=== PATIENT | female | born 1980 | race Caucasian/White ===

== ENCOUNTER 2016-10-25 19:07 | Emergency (ER) | payer MEDICARE, OTHER ==
[2016-10-25 19:52] VITALS: RESP 18
--- NOTE | 2016-10-25 20:55 | XR ---
EXAMINATION TYPE: XR knee complete bilateral DATE OF EXAM: 10/25/2016 8:45 PM COMPARISON: NONE HISTORY: Left knee pain and swelling TECHNIQUE: 6 views FINDINGS: I see no fracture nor dislocation. Joint spaces are fairly normal. There is normal alignmen t. There is a left sided knee joint effusion. There is a small right-sided knee joint effusion. There are no pathologic calcifications. IMPRESSION: Bilateral knee joint effusions. No fracture. No significant joint space narrowing.
--- NOTE | 2016-10-25 21:36 | ED ---
Extremity Problem HPI - General Chief complaint: Extremity Problem,Nontraumatic Stated complaint: swelling in both legs Time Seen by Provider: 10/25/16 19:56 Source: patient, RN notes reviewed Mode of arrival: ambulatory Limitations: no limitations - History of Present Illness Initial comments: Patient is a 36 year old female with PMH of RA presenting with bilateral knee swelling and pain for the past week. Patient reports that she fell and broke C1 and C4 approximatley 4 months ago, and was advised to discontinue RA treatments incluiding NSAIDS and steroids which could delay healing. She states that she is following up with [facility] in regards to being cleared to remove her cervical collar. She denies any residual complications from her falls and fracture incluiding paresthesias or paralysis. She states that She has noticed the muscles around the knee to be inflammed and painfull to touch as well. She is able to ambulate. She reports that when her RA exacerbates these symptoms can happen to her. Patient states that she has taken no antiiflammatories because she has not been medically cleared to take them due to her neck fracture. Patient denies fever, chills, chest pain, shortness of breath, nausea , vomiting, peripheral paresthesias,abominal pain, dysuria, changes in bowel habits. - Related Data Home Medications Medication Instructions Recorded Confirmed Levofloxacin [Levaquin] 500 mg PO DAILY 10/25/16 10/25/16 Muscle Relaxer (Unknown) 1 tab PO DAILY PRN 10/25/16 10/25/16 Sertraline [Zoloft] 50 mg PO DAILY 10/25/16 10/25/16 oxyCODONE-APAP 5-325MG [Percocet 1 tab PO Q6HR PRN 10/25/16 10/25/16 5-325 mg] Previous Rx's Medication Instructions Recorded predniSONE 20 mg PO DAILY #5 tab 10/25/16 Allergies Allergy/AdvReac Type Severity Reaction Status Date / Time clindamycin HCl Allergy Nausea & Verified 10/25/16 20:21 [From Cleocin] Vomiting clindamycin palmitate HCl Allergy Nausea & Verified 10/25/16 20:21 [From Cleocin] Vomiting clindamycin phosphate Allergy Nausea & Verified 10/25/16 20:21 [From Cleocin] Vomiting Review of Systems ROS Statement: Those systems with pertinent positive or pertinent negative responses have been documented in the HPI. ROS Other: All systems not noted in ROS Statement are negative. Past Medical History Past Medical History: Mitral Valve Prolapse (MVP), Pneumonia, Rheumatoid Arthritis (RA) Additional Past Medical History / Comment(s): MITRAL VALVE PROLAPSE, difficult airway to intubate-pt stated she has to be awake, CONSTIPATION History of Any Multi-Drug Resistant Organisms: None Reported Past Surgical History: Hernia Repair Additional Past Surgical History / Comment(s): jaw surgeries (pt stated they had to break her jaw and lengthen bone and put in a chin implant) d/t her ra, catalina inguinal hernia repair and umbilical hernia repair. Past Anesthesia/Blood Transfusion Reactions: No Reported Reaction Additional Past Anesthesia/Blood Transfusion Reaction / Comment(s): clausterphobia Past Psychological History: Anxiety, Depression Additional Psychological History / Comment(s): Pt recently started on xanax for anxiety. Pt resides with her boyfriend and their 3 boys ages 12yrs, 4 yrs and 10 months. She is independent. She drives. Smoking Status: Never smoker Past Alcohol Use History: None Reported Past Drug Use History: None Reported - Past Family History Father Family Medical History: Diabetes Mellitus, Hypertension Additional Family Medical History / Comment(s): Father has alot of back problems with surgery. He is 57 yrs old. Mother Family Medical History: Asthma, Hypertension Additional Family Medical History / Comment(s): Mother had radiation therapy as child and now has no cortisol due to this. She is 56yrs old. General Exam - General Exam Comments Initial Comments: Pleasant 36 year old female in a soft cerval collar. No acute distress. Limitations: no limitations General appearance: alert, in no apparent distress Head exam: Present: atraumatic, normocephalic, normal inspection Eye exam: Present: normal appearance, PERRL, EOMI. Absent: scleral icterus, conjunctival injection, periorbital swelling ENT exam: Present: normal exam, mucous membranes moist Neck exam: Present: other (wearing cervical collar. ). Absent: normal inspection, tenderness, meningismus, lymphadenopathy Cardiovascular Exam: Present: regular rate, normal rhythm, normal heart sounds. Absent: systolic murmur, diastolic murmur, rubs, gallop, clicks GI/Abdominal exam: Present: soft, normal bowel sounds. Absent: distended, tenderness, guarding, rebound, rigid Extremities exam: Present: normal inspection, full ROM, normal capillary refill , other (bilteral knee joints are swollen and patient is tender over bilateral medial meniscus. No erythema or decreased range of motion. Patient reports that her right knee feels stiff with movement. No swelling or pain in calf or posterior knees. ). Absent: tenderness, pedal edema, joint swelling, calf tenderness Back exam: Present: normal inspection Neurological exam: Present: alert, oriented X3, CN II-XII intact Psychiatric exam: Present: normal affect, normal mood Skin exam: Present: warm, dry, intact, normal color. Absent: rash Course Vital Signs 10/25/16 10/25/16 19:49 22:05 Temperature 97.7 F 98.2 F Pulse Rate 75 88 Respiratory 18 18 Rate Blood Pressure 137/93 132/72 O2 Sat by Pulse 97 Oximetry Medical Decision Making - Medical Decision Making Patient is a 36 year old with RA presenting with bilateral knee pain. PAtient has not taken antiinflamatories and has been off of RA medication due to a fall and fracture of C1 and C4 a few months ago and recent . Xrays show bilateral knee joint effusions, no fractures or dislocation. Patient given BANDAR wrap bilaterally and will be placed on a short course of steroids and instructed to rest, ice, and elevate extremities. Given the length of time between fracture and given patients pain, IT deems necessary to start a short course of antiinflammatories. Patient understands treatment plan and will comply. Patient understands return parameters. Following up with PCP in 1-2 days. Disposition Clinical Impression: Bilateral knee swelling, Rheumatoid arthritis Disposition: HOME SELF-CARE Condition: Good Instructions: Rheumatoid Arthritis (ED), Swollen Knee Joint (ED) Additional Instructions: Patient instructed to rest, elevate legs and to apply compression with Bandar wrap. Take prescription steroid anti-inflammatory medications as directed. Return to the [facility] if any alarming signs or symptoms occur. Follow-up with primary care physician in one to 2 days. Prescriptions: predniSONE 20 mg PO DAILY #5 tab Referrals: Benito Calle MD [Primary Care Provider] - 1-2 days Riley Crowder MD [Medical Doctor] - 1-2 days Time of Disposition: 21:35
[2016-10-25 22:06] VITALS: BP 132/72; PULSE 88; TEMP 98.2
== END 2016-10-25 22:07 | disposition home or self-care (01) ==
LOC: EC 19:07
DX: M06.9 Rheumatoid arthritis, unspecified (principal); M25.462 Effusion, left knee; M25.461 Effusion, right knee; F41.9 Anxiety disorder, unspecified; F32.9 Major depressive disorder, single episode, unspecified; I34.1 Nonrheumatic mitral (valve) prolapse; Z79.899 Other long term (current) drug therapy; Z88.1 Allergy status to other antibiotic agents
CPT/HCPCS: 99283

== ENCOUNTER → 2017-02-18 | Outpatient (CLI) | payer MEDICARE, OTHER ==
--- NOTE | 2017-02-18 17:31 | CT ---
EXAMINATION TYPE: CT cervical spine wo con DATE OF EXAM: 02/18/2017 4:33 PM COMPARISON: Prior CT C-spine 29 June 2016 HISTORY: F/U after cervical fx. CT DLP: 256.6 mGycm Automated exposure control for dose reduction was used. TECHNIQUE: CT scan of the cervical spine is obtained without contrast, axial images are obtained, sagittal and c oronal reformatted images are also reviewed. FINDINGS: There is been interval healing of the patient's C1 fracture, some ankylosis noted along the right occ ipital condyle to the lateral aspect of C1 bilaterally. P osterior elements show similar segmentation anomalies at C2, C3 and C4. There is a head tilt present. Cervical vertebral bodies show preserved h eight, stable alignment. Disc spaces show a similar appearance. Atrophic temporomandibular joint present on the right. Mandible shows irregular appearance likely con genital. Inflammatory change in the x-ray sinuses IMPRESSION: Interval fracture healing
== END | disposition home or self-care (01) ==
LOC: RADCTMAIN 15:47
PROVIDERS: ATTEND Physician Assistant Surgical
DX: S12.000D Unspecified displaced fracture of first cervical vertebra, subsequent encounter for fracture with routine healing (principal)
CPT/HCPCS: 72125

== ENCOUNTER → 2018-01-21 | Outpatient (CLI) | payer MEDICARE, OTHER ==
--- NOTE | 2018-01-21 16:00 | BD ---
EXAMINATION TYPE: MG DEXA axial skeleton. DATE OF EXAM: 01/21/2018 COMPARISON: 12/10/2003 CLINICAL HISTORY: Height: 64.7 IN Weight: 162 LBS FRAX RISK QUESTIONS: Alcohol (3 or more units per day): NO Family History (Parent hip fracture): NO Glucocorticoids (More than 3mos): NO (Ex: prednisone, prednisolone, methylprednisolone, dexamethasone, and hydrocortisone). History of Fracture in Adulthood: CERVICAL FX 2017; RT HUMERUS FX 2018 Secondary Osteoporosis: 1. Type 1 Diabetes: NO 2. Hyperthyroidism: NO 3. Menopause before 45: NO 4. Malnutrition: NO 5. Chronic liver disease: NO Rheumatoid Arthritis: YES Current Tobacco Use: NO RISK FACTORS HISTORY OF: Spine Fracture: CERVICAL SPINE When: 2017 Family History of Osteoporosis: YES MOTHER Active: MODERATE Diet low in dairy products/other sources of calcium: YES PT HAD A BABY 3 WEEKS AGO. Take estrogen and/or progesterone medications: NOT NOW How long: CONTROL AGE 19 - 35 OFF AND ON Frequent falls: YES STUMBLES OVER FEET MEDICATIONS: Additional Medications: CALCIUM, VIT D, NORCO, TUMS, EXAM MEASUREMENTS: Bone mineral densitometry was performed using the Picatic System. Bone mineral density as measured about the Lumbar spine is: ----- L1-L4(G/cm2): 1.164 T Score Values are as follows: ----- L2: 0.5 ----- L3: 0.7 ----- L4: -1.4 ----- L1-L4: -0.1 Bone mineral density has: Increased 2.6% since study of: 12/10/2003 Bone mineral density about the R hip (g/cm2): 0.824 Bone mineral density about the L hip (g/cm2): 0.877 T Score values are as follows: -----R Neck: -1.5 -----L Neck: -1.2 -----R Total: -1.8 -----L Total: -1.0 Bone mineral density has: Decreased -5.6% since study of: 12/10/2003 IMPRESSION: Osteopenia (T Score between -2.5 and -1). There is slightly increased risk of fracture and the patient may be considered for treatment. Re-Screen 2-5 years. NOTE: T-SCORE=SD OF THE YOUNG ADULT MEAN.
== END | disposition home or self-care (01) ==
LOC: RADBDWWP 07:27
PROVIDERS: ATTEND Family Medicine
DX: M85.80 Other specified disorders of bone density and structure, unspecified site (principal)
CPT/HCPCS: 77080

== ENCOUNTER 2018-06-17 04:05 | Emergency (ER) | payer MEDICARE, OTHER ==
[2018-06-17 04:11] VITALS: BP 118/84; PULSE 82; RESP 20; TEMP 97.9
[2018-06-17] MEDS ORDERED: NEOMYCIN-POLYMYXIN-HC (3.5-10,000-10 MG) OTIC DROPS 10 ML BTL LEFT EAR STA (04:31)
--- NOTE | 2018-06-17 04:31 | ED ---
ENT HPI - General Chief complaint: ENT Stated complaint: Ear ache Time Seen by Provider: 06/17/18 04:26 Source: patient, family Mode of arrival: ambulatory Limitations: no limitations - History of Present Illness Initial comments: This patient is a 38-year-old woman who presents with left ear pain. She is not having any change in her hearing. She is not having any drainage from the ear. No fevers. She denies any trauma MD complaint: ear pain Onset/Timin -: days(s) Location: L ear Severity: moderate Quality: aching Consistency: constant Improves with: none Worsens with: other (Palpation) - Related Data Home Medications Medication Instructions Recorded Confirmed Sertraline [Zoloft] 50 mg PO DAILY 10/25/16 06/17/18 Abatacept/Maltose [Orencia] 750 mg IVPB DIRECTED 12/23/16 06/17/18 Denosumab [Prolia] 60 mg SQ ONCE 06/17/18 06/17/18 Allergies Allergy/AdvReac Type Severity Reaction Status Date / Time clindamycin HCl Allergy Nausea & Verified 06/17/18 04:11 [From Cleocin] Vomiting clindamycin palmitate HCl Allergy Nausea & Verified 06/17/18 04:11 [From Cleocin] Vomiting clindamycin phosphate Allergy Nausea & Verified 06/17/18 04:11 [From Cleocin] Vomiting Review of Systems ROS Statement: Those systems with pertinent positive or pertinent negative responses have been documented in the HPI. ROS Other: All systems not noted in ROS Statement are negative. Constitutional: Denies: fever, chills ENT: Reports: ear pain. Denies: throat pain, hearing loss, congestion Respiratory: Denies: cough, dyspnea Skin: Denies: rash Neurological: Denies: headache, vertigo Past Medical History Past Medical History: Mitral Valve Prolapse (MVP), Pneumonia, Rheumatoid Arthritis (RA) Additional Past Medical History / Comment(s): MITRAL VALVE PROLAPSE, difficult airway to intubate-pt stated she has to be awake, CONSTIPATION. Broke neck - Sep. 2015 History of Any Multi-Drug Resistant Organisms: None Reported Past Surgical History: Hernia Repair, Orthopedic Surgery Additional Past Surgical History / Comment(s): jaw surgeries (pt stated they had to break her jaw and lengthen bone and put in a chin implant) d/t her ra, [place] inguinal hernia repair and umbilical hernia repair. Past Anesthesia/Blood Transfusion Reactions: No Reported Reaction Additional Past Anesthesia/Blood Transfusion Reaction / Comment(s): clausterphobia Past Psychological History: Anxiety, Depression Smoking Status: Never smoker Past Alcohol Use History: None Reported Past Drug Use History: None Reported - Past Family History Father Family Medical History: Diabetes Mellitus, Hypertension Additional Family Medical History / Comment(s): Father has alot of back problems with surgery. He is 57 yrs old. Mother Family Medical History: Asthma, Hypertension Additional Family Medical History / Comment(s): Mother had radiation therapy as child and now has no cortisol due to this. She is 56yrs old. General Exam Limitations: no limitations General appearance: alert, in no apparent distress Head exam: Present: atraumatic, normocephalic Eye exam: Present: normal appearance ENT exam: Present: normal oropharynx, mucous membranes moist, TM's normal bilaterally. Absent: normal external ear exam (There is some mild erythema and edema of the left external auditory canal. There is tenderness at the tragus. No mastoid tenderness.) Neck exam: Present: normal inspection, full ROM. Absent: tenderness, meningismus, lymphadenopathy Course Vital Signs 06/17/18 04:07 Temperature 97.9 F Pulse Rate 82 Respiratory 20 Rate Blood Pressure 118/84 O2 Sat by Pulse 97 Oximetry Medical Decision Making - Medical Decision Making This is a 38-year-old woman who presents with history and physical consistent with otitis media. Discussed appropriate treatment and follow-up as well as return parameters. Patient started on medication here. Disposition Clinical Impression: Otitis externa Disposition: HOME SELF-CARE Condition: Good Instructions: Otitis Externa (DC) Is patient prescribed a controlled substance at d/c from ED?: No Referrals: Benito Calle MD [Primary Care Provider] - 1-2 days
== END 2018-06-17 04:56 | disposition home or self-care (01) ==
LOC: EC 04:05
DX: H60.92 Unspecified otitis externa, left ear (principal); F32.9 Major depressive disorder, single episode, unspecified; Z79.899 Other long term (current) drug therapy; Z88.1 Allergy status to other antibiotic agents
CPT/HCPCS: 99282

== ENCOUNTER 2018-07-12 13:22 | Emergency (ER) | payer MEDICARE, OTHER ==
[2018-07-12 13:53] VITALS: RESP 18
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
[2018-07-12 14:27] LABS: Basophils # (A) 0.1 k/uL (0-0.2); Basophils % (A) 1 %; Eosinophils # (A) 0.4 k/uL (0-0.7); Eosinophils % (A) 5 %; HCT 40.8 % (34.0-46.0); HGB 12.9 gm/dL (11.4-16.0); Hypochromasia Slight; Lymphocytes # (A) 0.8 k/uL (1.0-4.8); Lymphocytes % (A) 11 %; MCH 23.9 pg (25.0-35.0); MCHC 31.5 g/dL (31.0-37.0); MCV 75.8 fL (80.0-100.0); Mean Platelet Volume 7.2; Microcytosis Slight; Monocytes # (A) 0.3 k/uL (0-1.0); Monocytes % (A) 5 %; Neutrophils # (A) 5.8 k/uL (1.3-7.7); Neutrophils % (A) 77 %; Platelet Count 312 k/uL (150-450); RBC 5.37 m/uL (3.80-5.40); RDW 15.6 % (11.5-15.5); WBC 7.5 k/uL (3.8-10.6)
[2018-07-12 14:41] LABS: D-Dimer 0.53 mg/L FEU (<0.60); INR 1.1 (<1.2); Partial Thromboplastin Time 24.3 sec (22.0-30.0); Prothrombin Time 10.3 sec (9.0-12.0)
[2018-07-12 14:43] LABS: ALT 12 U/L (9-52); AST 25 U/L (14-36); Albumin 4.5 g/dL (3.5-5.0); Alkaline Phosphatase 90 U/L (38-126); Anion Gap 11 mmol/L; Blood Urea Nitrogen 14 mg/dL (7-17); Calcium 11.4 mg/dL (8.4-10.2); Carbon Dioxide 23 mmol/L (22-30); Chloride 105 mmol/L (98-107); Glucose 119 mg/dL (74-99); Magnesium 1.5 mg/dL (1.6-2.3); Potassium 4.2 mmol/L (3.5-5.1); Sodium 139 mmol/L (137-145); Total Bilirubin 0.5 mg/dL (0.2-1.3); Total Protein 7.8 g/dL (6.3-8.2)
[2018-07-12 14:47] LABS: Creatine Kinase 46 U/L (30-135)
[2018-07-12 14:56] LABS: T4, Free (Free Thyroxine) 0.93 ng/dL (0.78-2.19)
[2018-07-12 15:00] LABS: Creatine Kinase MB 0.4 ng/mL (0.0-2.4); Troponin I <0.012 ng/mL (0.000-0.034)
[2018-07-12] MEDS ORDERED: SODIUM CHLORIDE 0.9% 1,000 ML IV STA (15:01)
[2018-07-12] MEDS ORDERED: MAGNESIUM SULFATE-D5W PMX 1 GM in DEXTROSE/WATER 1 100ML.BAG IVPB ONE (15:01)
--- NOTE | 2018-07-12 15:03 | XR ---
EXAMINATION TYPE: XR chest 2V DATE OF EXAM: 07/12/2018 COMPARISON: NONE HISTORY: Irregular heart rate and dysrhythmia. Cough and congestion. TECHNIQUE: Frontal and lateral views of the chest are obtained. FINDINGS: Overlying EKG leads are seen. There is no focal air space opacity, pleural effusion, or pn eumothorax seen. The cardiac silhouette size is within normal limits. The osseous structures are i ntact. IMPRESSION: No acute cardiopulmonary process.
[2018-07-12 15:39] LABS: Amorphous Sediment,Urine Few /hpf; Appearance,Urine Cloudy (Clear); Bilirubin,Urine Negative (Negative); Blood,Urine Small (Negative); Color,Urine Yellow; Glucose,Urine (UA) Negative (Negative); Ketones,Urine Negative (Negative); Leukocyte Esterase,Urine Large (Negative); Mucus,Urine Rare /hpf; Nitrite,Urine Negative (Negative); Protein,Urine Trace (Negative); RBC,Urine 3 /hpf (0-5); Specific Gravity,Urine 1.015 (1.001-1.035); Squamous Epithelial Cell,Urine 25 /hpf (0-4); Urobilinogen,Urine <2.0 mg/dL (<2.0); WBC,Urine 109 /hpf (0-5)
[2018-07-12 15:48] LABS: Amphetamine Screen,Urine Not Detected (NotDetected); Barbiturate Screen,Urine Not Detected (NotDetected); Benzodiazepines Screen,Urine Detected (NotDetected); Cocaine Screen,Urine Not Detected (NotDetected); Methadone Screen, Urine Not Detected (NotDetected); Opiate Screen,Urine Not Detected (NotDetected); Oxycodone Screen, Urine Not Detected (NotDetected); Phencyclidine Screen,Urine Not Detected (NotDetected); Tricyclic Antidepressant,Urine Not Detected (NotDetected); Urn Cannabinoid Scrn Not Detected (NotDetected)
[2018-07-12 16:16] VITALS: BP 139/70; PULSE 91; TEMP 98.3
== END 2018-07-12 16:27 | disposition home or self-care (01) ==
LOC: EC 13:22
DX: R00.0 Tachycardia, unspecified (principal); R06.02 Shortness of breath; R00.2 Palpitations; R05 Cough; M06.9 Rheumatoid arthritis, unspecified; M81.0 Age-related osteoporosis without current pathological fracture; F32.9 Major depressive disorder, single episode, unspecified; F41.9 Anxiety disorder, unspecified; Z98.890 Other specified postprocedural states; Z79.899 Other long term (current) drug therapy; Z88.1 Allergy status to other antibiotic agents
CPT/HCPCS: 36415; 93005; 85379; 84439; 84481; 80053; 82550; 82553; 83735; 84443; 84484; 85025; 85610; 85730; 81001; 80306; 71046; 99285; 96365; J3475

== ENCOUNTER → 2019-01-24 | Outpatient (CLI) | payer MEDICARE, OTHER ==
--- NOTE | 2019-01-24 16:54 | CT ---
EXAMINATION TYPE: CT brain wo con DATE OF EXAM: 01/24/2019 COMPARISON: 06/29/2016 HISTORY: Headache with confusion x [address] DLP: 1121 mGycm. Automated Exposure Control for Dose Reduction was Utilized. TECHNIQUE: CT scan of the head is performed without contrast. FINDINGS: There is no acute intracranial hemorrhage, mass effect, or midline shift identified. Ther e are very few patchy areas of hypoattenuation within the deep white matter as seen on the prior exam . These could be further evaluated with MRI. Cerebellar tonsils are noted be low-lying without will herniation. The ventricles and sulci are within normal limits in size. The globes are intact and th e visualized sinuses are clear. There is a healed fracture of C1. Postsurgical changes are seen of th e maxilla extending into the maxillary sinuses. Mild mucosal thickening is present within the sphenoi d, maxillary, and ethmoid sinuses. Frontal sinuses and mastoid air cells are well aerated. Low-densit y exophytic left frontal scalp lesion should be correlated with physical exam. IMPRESSION: 1. A few patchy areas of hypoattenuation in the deep white matter could be further evaluated with MRI . Consideration are for sequela of posterior meningeal injury as these were seen on the prior of 06/29 in the setting of pain after trauma, less likely demyelinating disease, or vasculitis. 2. No acute intracranial hemorrhage, midline shift or mass effect. 3. Healed C1 fracture. 4. Postsurgical changes in the maxillary sinuses with mild paranasal sinus disease.
== END ==
LOC: RADCTMAIN 16:00
PROVIDERS: ATTEND Family Medicine
DX: R90.89 Other abnormal findings on diagnostic imaging of central nervous system (principal); R51 Headache; Z88.8 Allergy status to other drugs, medicaments and biological substances; Z88.1 Allergy status to other antibiotic agents
CPT/HCPCS: 70450

== ENCOUNTER → 2019-06-30 | Outpatient (CLI) | payer MEDICARE, OTHER ==
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
== END ==
LOC: RADCTMAIN 14:12
PROVIDERS: ATTEND Family Medicine
DX: G43.109 Migraine with aura, not intractable, without status migrainosus (principal); R41.3 Other amnesia; Z88.8 Allergy status to other drugs, medicaments and biological substances; Z91.09 Other allergy status, other than to drugs and biological substances
CPT/HCPCS: 70450

== ENCOUNTER → 2021-10-02 | Outpatient (CLI) | payer MEDICARE, OTHER ==
--- NOTE | 2021-10-02 20:25 | BD ---
EXAMINATION TYPE: Axial Bone Density DATE OF EXAM: 10/02/2021 COMPARISON: 01.21.2018 CLINICAL HISTORY: 41 YR OLD FEMALE..... ICD-10 CODE: M85.88 DISORDER OF BD. Height: 64 Weight: 175 FRAX RISK QUESTIONS: Glucocorticoids (More than 3mos): YES (Ex: prednisone, prednisolone, methylprednisolone, dexamethasone, and hydrocortisone). History of Fracture in Adulthood: YES 3. Menopause before 45: NA...LMP SEP 25, 2021 Rheumatoid Arthritis: YES RISK FACTORS HISTORY OF: RT ARM 2017, AND NECK 2016 Postmenopausal woman: NO, LMP SEP 25, 2021 Hyperparathyroidism: NO Adrenal Insufficiency: NO MEDICATIONS: Prednisone or other steroids: INHALER, AND STEROIDS, CHRONIC, YES Osteoporosis Medications: YES, IN THE PAST PROLIA, AND REMICADE IN THE PAST WITHOUT FOR 1 YR Additional Medications: XANAX, LEXAPRO, VIT D AND CALCIUM , Additional History: RA, HX OF FXS, ANXIETY, EXAM MEASUREMENTS: Bone mineral densitometry was performed using the [employer] System. Bone mineral density as measured about the Lumbar spine is: ----- L1-L4(G/cm2): 1.180 T Score Values are as follows: ----- L1: -0.5 ----- L2: 0.4 ----- L3: 0.4 ----- L4: -0.4 ----- L1-L4: 0.0 Bone mineral density has: Increased 2.8% since study of: 01.21.2018 Bone mineral density about the R hip (g/cm2): 0.778 Bone mineral density about the L hip (g/cm2): 0.870 T Score values are as follows: -----R Neck: -1.8 -----L Neck: -1.6 -----R Total: -1.8 -----L Total: -1.1 Bone mineral density has: Decreased -1.4% since study of: 01.21.2018 FRAX%s: THERE IS A 11.5% CHANCE FOR A MAJOR OSTEOPOROTIC FX AND A 2.4% FOR HIPS.......PROBABILITY FOR FX IN 10 YRS TIME IMPRESSION: Z score values are utilized due to patient's premenopausal status. Bone mineral density is within the acceptable range (> -2.0) for patient's age. NOTE: T-SCORE=SD OF THE YOUNG ADULT MEAN.
== END | disposition home or self-care (01) ==
LOC: RADBDWWP 09:35
PROVIDERS: ATTEND Family Medicine
DX: M85.89 Other specified disorders of bone density and structure, multiple sites (principal)
CPT/HCPCS: 77080

== ENCOUNTER → 2023-07-06 | Outpatient (CLI) | payer MEDICARE, OTHER ==
--- NOTE | 2023-07-07 18:34 | MM ---
Reason for Exam: Screening (asymptomatic). Baseline mammogram. Patient History: Menarche at age 12. First Full-Term at age 23. Last menstrual period: 07/05/2023 Risk Values: Ct 5 year model risk: 0.6%. NCI Lifetime model risk: 8.8%. Prior Study Comparison: Patient's first Mammogram. No prior studies available for comparison. Tissue Density: The breast tissue is extremely dense which could obscure a lesion on mammography. Findings: Analyzed By CAD. Focal asymmetries are present bilaterally. No suspicious groups of microcalcifications, spiculated or lobular masses, architectural distortion or other secondary signs of malignancy are mammographically apparent. Overall Assessment: Benign, BI-RAD 2 Management: Screening Mammogram of both breasts in 1 year. A negative mammogram report should not preclude additional follow up of suspicious palpable abnormalities. Patient should continue monthly self breast exam. A clinical breast exam by your physician is recommended on an annual basis and results should be correlated with mammographic findings. Electronically signed and approved by: Jeff Wilde D.O. Radiologis
== END | disposition home or self-care (01) ==
LOC: RADMAMWWP 09:51
PROVIDERS: ATTEND Family Medicine
DX: Z12.31 Encounter for screening mammogram for malignant neoplasm of breast (principal)
CPT/HCPCS: 77063; 77067